=== PATIENT | female | born 1965 | race Caucasian/White ===

== ENCOUNTER 2017-10-17 07:37 | Emergency (ER) | payer MEDICAID ==
[~2017-10-17] VITALS: Ht 149.9 cm; Wt 79.0 kg
[~2017-10-17 07:37] MED LIST: ACYC-202 PO; CEPH-357 PO; NO HOME MEDS; [UNRECOGNIZED DRUG - CODE] PO
[2017-10-17] MEDS ORDERED: benzonatate 100mg capsule PO ONE (08:30)
[2017-10-17] MEDS ORDERED: proparacaine 0.5% ophthalmic drops 15ml RIGHTEYE ONE (08:30)
[2017-10-17] MEDS ORDERED: ipratropium/albuterol 3ml nebule NEB ONE (08:30)
[2017-10-17] MEDS ORDERED: gentamicin 0.3% ophthalmic drops 5ML RIGHTEYE ONE (09:20)
[2017-10-17] MEDS ORDERED: BENZ-16 PO (09:22)
[2017-10-17] MEDS ORDERED: ALBU18HF2 INH (09:22)
[2017-10-17 10:17] VITALS: BP 160/94
== END 2017-10-17 10:19 | disposition home or self-care (01) ==
LOC: ER 07:38
DX: S05.01XA Injury of conjunctiva and corneal abrasion without foreign body, right eye, initial encounter (principal); J98.01 Acute bronchospasm; J06.9 Acute upper respiratory infection, unspecified; J45.909 Unspecified asthma, uncomplicated; F12.10 Cannabis abuse, uncomplicated; F17.200 Nicotine dependence, unspecified, uncomplicated; Z90.49 Acquired absence of other specified parts of digestive tract; Z90.710 Acquired absence of both cervix and uterus; Z79.899 Other long term (current) drug therapy; X58.XXXA Exposure to other specified factors, initial encounter; Y93.89 Activity, other specified; Y92.89 Other specified places as the place of occurrence of the external cause; Y99.9 Unspecified external cause status
CPT/HCPCS: 71046; 94640; 94760; 99284

== ENCOUNTER 2019-06-07 13:08 | Inpatient (IN) | payer MEDICAID ==
[~2019-06-07] VITALS: Ht 147.3 cm; Wt 77.3 kg
[~2019-06-07 13:08] MED LIST changes: +ALBU18HF2 INH
--- NOTE | 2019-06-07 13:56 | NUR ---
GRACIA FROM LAB ATTEMPTED TO DRAW LABS X2 ON PT.
--- NOTE | 2019-06-07 16:15 | NUR ---
PICC NURSE AWARE OF NEED FOR MIDLINE.
--- NOTE | 2019-06-07 16:50 | NUR ---
PICC NURSE AT BEDSIDE.
[2019-06-07 18:09] LABS: PARTIAL THROMBOPLASTIN TIME 28 SECONDS (22-32)
[2019-06-07 18:11] LABS: BASOPHILS # (AUTO) 0.1 X10'3 (0-0.2); BASOPHILS % (AUTO) 0.4 % (0-1); EOSINOPHILS % (AUTO) 0.1 % (0-6); HEMATOCRIT 46.8 % (35.0-45.0); HEMOGLOBIN 15.6 g/dl (12.0-16.0); LYMPHOCYTES # (AUTO) 1.5 X10'3 (1.1-4.8); LYMPHOCYTES % (AUTO) 8.6 % (21-51); MEAN CORPUSCULAR HEMOGLOBIN 29.1 PG (27.0-31.0); MEAN CORPUSCULAR HGB CONC 33.4 g/dL (33.0-36.5); MEAN CORPUSCULAR VOLUME 87.2 FL (78-98); MEAN PLATELET VOLUME 7.4 FL (7.4-10.4); MONOCYTES # (AUTO) 1.8 X10'3 (0-0.9); MONOCYTES % (AUTO) 9.8 % (2-12); NEUTROPHILS # (AUTO) 14.6 X10'3 (1.8-7.7); NEUTROPHILS % (AUTO) 81.1 % (42-75); PLATELET COUNT 196 X10'3 (140-440); RED BLOOD COUNT 5.37 X10'6 (4.20-5.60); RED CELL DISTRIBUTION WIDTH 13.7 % (11.5-14.5)
[2019-06-07 18:12] LABS: ALANINE AMINOTRANSFERASE 56 U/L (12-78); ALBUMIN 2.8 G/DL (3.4-5.0); ALBUMIN/GLOBULIN RATIO 0.5 (1.1-1.5); ALKALINE PHOSPHATASE 109 IU/L (46-116); ANION GAP 10 (8-16); ASPARTATE AMINO TRANSFERASE 34 U/L (10-37); BILIRUBIN,TOTAL 0.7 MG/DL (0.1-1.0); BLOOD UREA NITROGEN 13 MG/DL (7-18); CALCIUM 8.7 MG/DL (8.5-10.1); CHLORIDE 96 MMOL/L (99-107); CREATININE 0.81 MG/DL (0.40-0.90); ETHANOL < 0.010 GM/DL (0.0-0.010); GLUCOSE 101 MG/DL (70-104); POTASSIUM 3.8 MMOL/L (3.5-5.1); SODIUM 131 MMOL/L (135-145); TOTAL CARBON DIOXIDE 25.2 MMOL/L (24-32); TOTAL PROTEIN 8.5 G/DL (6.4-8.2); eGFR 73 ML/MIN
[2019-06-07] MEDS ORDERED: piperacillin/tazo 3.375gm/50ml 50 ML IV ONE (18:15)
[2019-06-07] MEDS ORDERED: vancomycin/NS 1 GM ADD-VANTAGE 250 ML IV ONE (18:15)
[2019-06-07] MEDS ORDERED: normal saline 1000ML IV soln IV ONE (18:25)
[2019-06-07] MEDS ORDERED: morphine 4 MG/ML inj SYRINge IV ONE (18:40)
[2019-06-07] MEDS: morphine 4 MG/ML inj SYRINge IV PRN ×2 (19:17→21:08)
--- NOTE | 2019-06-07 19:47 | NUR ---
BLOOD CULTURES AND LACTATE DRAWN FROM RIGHT UPPER ARM PICCMIDLINE
--- NOTE | 2019-06-07 19:49 | NUR ---
PT RESTING COMFORTABLY - IV ABX DONE INFUSING - 2ND LITER OF BOLUS STARTED.
--- NOTE | 2019-06-07 20:11 | NUR ---
patint up out of bed to bed side comode. patient sister to see her . "gave her bites of burger."
[2019-06-07] MEDS: normal saline 1000ml 1,000 ML IV SCH (20:13)
[2019-06-07] MEDS ORDERED: magnesium Cl slow-release 64mg tablet PO PRN (20:15)
[2019-06-07] MEDS ORDERED: ondansetron/PF 4mg/2ml inj IV PRN (20:15)
[2019-06-07] MEDS ORDERED: potassium CL 10mEq/100ml bag 100 ML IV PRN ×2 (20:15)
[2019-06-07] MEDS ORDERED: magnesium hydroxide 30ml (MOM) UD suspension PO PRN (20:15)
[2019-06-07] MEDS ORDERED: morphine 2 MG/ML inj. syringe IV PRN ×2 (20:15)
[2019-06-07] MEDS ORDERED: mag hydrox/Alum hydrox/simeth 30ml oral suspension PO PRN (20:15)
[2019-06-07] MEDS ORDERED: potassium Cl 20 mEq SR tablet PO PRN (20:15)
[2019-06-07] MEDS ORDERED: HYDROcodone/acetaminophen 5mg/325mg tablet PO PRN (20:15)
[2019-06-07] MEDS ORDERED: magnesium 4gm in 100ml NS 100 ML IV PRN (20:15)
[2019-06-07] MEDS ORDERED: magnesium 2GM in 50ml NS 50 ML IV PRN (20:15)
[2019-06-07] MEDS ORDERED: acetaminophen 325mg tablet PO PRN (20:15)
[2019-06-07 20:47] LABS: URINE AMPHETAMINE SCREEN POSITIVE (Neg); URINE BARBITUATE SCREEN NEGATIVE (Neg); URINE BENZODIAZEPINES SCREEN NEGATIVE (Neg); URINE CANNABINOID SCREEN POSITIVE (Neg); URINE COCAINE SCREEN NEGATIVE (Neg); URINE METHADONE SCREEN NEGATIVE (Neg); URINE OPIATE SCREEN POSITIVE (Neg); URINE PHENCYCLIDINE SCREEN NEGATIVE (Neg)
[2019-06-07 20:51] LABS: CLARITY,URINE CLEAR (Clear); COLOR,URINE YELLOW (Yellow); GLUCOSE, URINE NEGATIVE (Neg); KETONES,URINE 15 mg/dl (Neg); LEUKOCYTE ESTERASE ,URINE TRACE (Neg); NITRITES, URINE NEGATIVE (Neg); OCCULT BLOOD,URINE TRACE-INTACT (Neg); PH,URINE 5.5 (4.8-8.0); PROTEIN,URINE NEGATIVE (Neg)
[2019-06-07 20:53] LABS: UA COLLECTION TYPE CLN CATCH MIDSTREAM
[2019-06-07 20:57] LABS: BACTERIA,URINE 1+ /HPF (Neg); RBC,URINE NONE SEEN /HPF (0-2); SQUAMOUS EPITHELIAL CELL,UR MODERATE /LPF (FEW)
[2019-06-07 20:58] LABS: MUCUS STRANDS FEW /LPF (Neg)
--- NOTE | 2019-06-07 21:06 | NUR ---
report called form DAMON Leyva. awaiting pt arrival to unit
[2019-06-07 21:22] VITALS: BP 187/97
--- NOTE | 2019-06-07 21:22 | NUR ---
pt arrived to unit, transferred self from [facility] to bed. vitals taken, 2 rn skin check done, bll, 2x rails up, call light in reach. will continue to monitor
[2019-06-07] MEDS ORDERED: LORazepam 1 MG tablet PO PRN (23:15)
[2019-06-08] VITALS: BP 160/73
[2019-06-08] MEDS ORDERED: piperacillin/tazo 3.375gm/50ml 50 ML IV SCH
[2019-06-08] MEDS: vancomycin/NS 1 GM ADD-VANTAGE 250 ML IV SCH ×2 (00:32→12:16)
[2019-06-08] MEDS: piperacillin/tazo 3.375gm/50ml 50 ML IV SCH ×2 (02:08→08:00)
[2019-06-08 04:55] LABS: BASOPHILS % (AUTO) 0.1 % (0-1); EOSINOPHILS % (AUTO) 0.1 % (0-6); HEMATOCRIT 40.5 % (35.0-45.0); HEMOGLOBIN 13.7 g/dl (12.0-16.0); LYMPHOCYTES # (AUTO) 1.6 X10'3 (1.1-4.8); LYMPHOCYTES % (AUTO) 10.9 % (21-51); MEAN CORPUSCULAR HEMOGLOBIN 29.3 PG (27.0-31.0); MEAN CORPUSCULAR HGB CONC 33.8 g/dL (33.0-36.5); MEAN CORPUSCULAR VOLUME 86.6 FL (78-98); MEAN PLATELET VOLUME 7.9 FL (7.4-10.4); MONOCYTES # (AUTO) 1.7 X10'3 (0-0.9); MONOCYTES % (AUTO) 11.4 % (2-12); NEUTROPHILS # (AUTO) 11.3 X10'3 (1.8-7.7); NEUTROPHILS % (AUTO) 77.5 % (42-75); PLATELET COUNT 174 X10'3 (140-440); RED BLOOD COUNT 4.68 X10'6 (4.20-5.60); RED CELL DISTRIBUTION WIDTH 13.4 % (11.5-14.5); WHITE BLOOD COUNT 14.6 X10'3 (4.5-11.0)
[2019-06-08 05:05] LABS: ALBUMIN 2.2 G/DL (3.4-5.0); ANION GAP 7 (8-16); BLOOD UREA NITROGEN 7 MG/DL (7-18); BUN/CREATININE RATIO 8.2 (6.6-38.0); CALCIUM 7.9 MG/DL (8.5-10.1); CHLORIDE 103 MMOL/L (99-107); CREATININE 0.85 MG/DL (0.40-0.90); GLUCOSE 114 MG/DL (70-104); MAGNESIUM 1.7 MG/DL (1.5-2.4); SODIUM 136 MMOL/L (135-145); eGFR 69 ML/MIN
--- NOTE | 2019-06-08 06:45 | NUR ---
Patient in room [facility] 345. I have received report from DAMON Ford and had the opportunity to ask questions and assume patient care.
--- NOTE | 2019-06-08 06:47 | NUR ---
Problems reprioritized. Patient report given, questions answered & plan of care reviewed with DAMON Wagner.
[2019-06-08 08:00] VITALS: BP 143/66
[2019-06-08] MEDS: K and/or MAG REPLACEMENT MC SCH (08:00)
[2019-06-08] MEDS: morphine 4 MG/ML inj SYRINge IV PRN (08:17)
[2019-06-08] MEDS: lactobacillus rhamnosus 10,000 MMU CELLS/CAPSULE PO SCH (08:21)
[2019-06-08] MEDS: potassium Cl 20 mEq SR tablet PO PRN ×3 (08:24→17:26)
[2019-06-08] MEDS: enoxaparin 40mg/0.4ml syringe SQ SCH (08:25)
[2019-06-08] MEDS: HYDROcodone/acetaminophen 10/325mg tab PO PRN ×2 (10:27→17:27)
[2019-06-08 12:00] VITALS: BP 172/81
[2019-06-08] MEDS: normal saline 1000ml 1,000 ML IV SCH ×2 (12:16→16:13)
[2019-06-08 12:30] VITALS: BP 160/84
--- NOTE | 2019-06-08 18:32 | NUR ---
Problems reprioritized. Patient report given, questions answered & plan of care reviewed with DAMON Wade.
--- NOTE | 2019-06-08 18:38 | NUR ---
Patient in room [facility] 345. I have received report from Kristy JOSE and had the opportunity to ask questions and assume patient care.
[2019-06-08 19:00] VITALS: BP 151/85
[2019-06-09] VITALS: BP 151/68
[2019-06-09] MEDS: vancomycin/NS 1 GM ADD-VANTAGE 250 ML IV SCH (00:51)
[2019-06-09] MEDS: HYDROcodone/acetaminophen 10/325mg tab PO PRN ×2 (00:57→07:51)
[2019-06-09] MEDS: normal saline 1000ml 1,000 ML IV SCH (03:13)
--- NOTE | 2019-06-09 06:35 | NUR ---
Problems reprioritized. Patient report given, questions answered & plan of care reviewed with Izzy JOSE.
[2019-06-09 07:14] VITALS: BP 129/64
[2019-06-09] MEDS: lactobacillus rhamnosus 10,000 MMU CELLS/CAPSULE PO SCH (07:51)
[2019-06-09] MEDS: enoxaparin 40mg/0.4ml syringe SQ SCH (07:52)
[2019-06-09] MEDS: K and/or MAG REPLACEMENT MC SCH (08:00)
--- NOTE | 2019-06-09 09:05 | NUR ---
PT REFUSING LABS, WANTS TO POSSIBLY GO HOME TODAY. DR LANDRY AWARE, CANCELLED LABS AND WILL WAIT FOR HER DECISION.
[2019-06-09] MEDS ORDERED: HYDR-4383 PO (09:26)
[2019-06-09] MEDS ORDERED: CEPH250T PO (09:26)
[2019-06-09] MEDS ORDERED: VANCOMYCIN LEVEL IV ONE (11:30)
--- NOTE | 2019-06-09 12:30 | NUR ---
PT DISCHARGED HOME WITH FAMILY, WILL COME BACK TO ER IF HOME ABX DOES NOT WORK. EXTENDED IV TAKEN OUT, NO TELE. ALL BELONGINGS TAKEN FROM ROOM.
== END 2019-06-09 12:40 | disposition home or self-care (01) | DRG 720 ==
LOC: ER 13:09 → SUR 3N 21:30 → CMPBEDREQ 21:37
PROVIDERS: ADMIT Hospitalist; ATTEND Internal Medicine
PROC: 05HY33Z Insertion of Infusion Device into Upper Vein, Percutaneous Approach (ICD-10-PCS; principal; 2019-06-07)
DX: A41.9 Sepsis, unspecified organism (principal); L03.115 Cellulitis of right lower limb; E87.6 Hypokalemia; B19.20 Unspecified viral hepatitis C without hepatic coma; F12.90 Cannabis use, unspecified, uncomplicated; J45.909 Unspecified asthma, uncomplicated; F17.200 Nicotine dependence, unspecified, uncomplicated; Z90.710 Acquired absence of both cervix and uterus; Z90.49 Acquired absence of other specified parts of digestive tract; Z79.899 Other long term (current) drug therapy
CPT/HCPCS: 36415; 71045; 76937; 80048; 80053; 80305; 80320; 81001; 83605; 83735; 84145; 85025; 85610; 85730; 87040; 87081; 87088; 93971; 96365; 96375; 99285; G0378; J1650; J2270; J2543; J3370; J7030

== ENCOUNTER 2022-03-03 03:13 | Inpatient (IN) | payer MEDICAID ==
[~2022-03-03] VITALS: Ht 149.9 cm; Wt 90.9 kg
[~2022-03-03 03:13] MED LIST changes: -ACYC-202 PO; -ALBU18HF2 INH; -CEPH-357 PO; +HYDR-4383 PO; -NO HOME MEDS; -[UNRECOGNIZED DRUG - CODE] PO
[2022-03-03] MEDS ORDERED: normal saline 1000ML IV soln IVB ONE (03:55)
[2022-03-03] MEDS ORDERED: vancomycin/NS 1 GM ADD-VANTAGE 250 ML IV ONE (04:05)
[2022-03-03] MEDS ORDERED: cefTRIAXone 1g/NS 100ml IVPB 100 ML IV ONE (04:05)
[2022-03-03 04:48] LABS: BASOPHILS % (AUTO) 0.2 % (0-1); EOSINOPHILS % (AUTO) 0.3 % (0-6); HEMATOCRIT 34.4 % (35.0-45.0); HEMOGLOBIN 11.2 g/dl (12.0-16.0); LYMPHOCYTES # (AUTO) 0.8 X10'3 (1.1-4.8); LYMPHOCYTES % (AUTO) 7.1 % (21-51); MEAN CORPUSCULAR HEMOGLOBIN 28.6 PG (27.0-31.0); MEAN CORPUSCULAR HGB CONC 32.6 g/dL (33.0-36.5); MEAN CORPUSCULAR VOLUME 87.5 FL (78-98); MEAN PLATELET VOLUME 7.3 FL (7.4-10.4); MONOCYTES # (AUTO) 1.1 X10'3 (0-0.9); MONOCYTES % (AUTO) 9.7 % (2-12); NEUTROPHILS # (AUTO) 9.6 X10'3 (1.8-7.7); NEUTROPHILS % (AUTO) 82.7 % (42-75); PLATELET COUNT 211 X10'3 (140-440); RED BLOOD COUNT 3.93 X10'6 (4.20-5.60); RED CELL DISTRIBUTION WIDTH 14.5 % (11.5-14.5); WHITE BLOOD COUNT 11.6 X10'3 (4.5-11.0)
[2022-03-03 04:58] LABS: ALANINE AMINOTRANSFERASE 17 U/L (12-78); ALBUMIN 3.1 G/DL (3.4-5.0); ALBUMIN/GLOBULIN RATIO 0.6 (1.1-1.5); ALKALINE PHOSPHATASE 151 IU/L (46-116); ANION GAP 8 (8-16); ASPARTATE AMINO TRANSFERASE 22 U/L (10-37); BILIRUBIN,TOTAL 0.4 MG/DL (0.1-1.0); BLOOD UREA NITROGEN 15 MG/DL (7-18); BUN/CREATININE RATIO 19.5 (6.6-38.0); CALCIUM 8.4 MG/DL (8.5-10.1); CHLORIDE 100 MMOL/L (99-107); CREATININE 0.77 MG/DL (0.40-0.90); GLUCOSE 157 MG/DL (70-104); POTASSIUM 3.6 MMOL/L (3.5-5.1); SODIUM 133 MMOL/L (135-145); TOTAL CARBON DIOXIDE 24.7 MMOL/L (24-32); TOTAL PROTEIN 7.9 G/DL (6.4-8.2); eGFR 77 ML/MIN
--- NOTE | 2022-03-03 05:36 | NUR ---
PT WAS EMOTIONAL AND CRYING R/T HEALTH SITUATION. CONSOLED PT AND LET HER KNOW THAT WE WOULD TAKE THE BEST CARE OF HER POSSIBLE. PT IS NOW RESTING QUIETLY IN BED.
[2022-03-03] MEDS ORDERED: bisacodyl 10mg suppository rectal RC PRN (06:10)
[2022-03-03] MEDS ORDERED: diphenhydrAMINE 25mg capsule PO PRN (06:10)
[2022-03-03] MEDS ORDERED: HYDROcodone/acetaminophen 5mg/325mg tablet PO PRN (06:10)
[2022-03-03] MEDS ORDERED: ondansetron/PF 4mg/2ml inj IV PRN (06:10)
[2022-03-03] MEDS ORDERED: morphine 2 MG/ML inj. syringe IV PRN ×2 (06:10)
[2022-03-03] MEDS ORDERED: diphenhydrAMINE 50 mg/ml inj IV PRN (06:10)
[2022-03-03] MEDS ORDERED: ondansetron 4mg rapidly disintigrating tab PO PRN (06:10)
[2022-03-03] MEDS ORDERED: HYDROmorphone inj. 0.5 MG/0.5 ML DISP.SYRIN IV PRN (06:10)
[2022-03-03] MEDS ORDERED: magnesium hydroxide 30ml (MOM) UD suspension PO PRN (06:10)
[2022-03-03] MEDS ORDERED: mag hydrox/Alum hydrox/simeth 30ml oral suspension PO PRN (06:10)
[2022-03-03 06:50] LABS: MAGNESIUM 1.6 MG/DL (1.5-2.4); PHOSPHORUS 2.5 MG/DL (2.3-4.5)
[2022-03-03] MEDS: pantoprazole 40mg Tablet.DR PO SCH (07:33)
[2022-03-03] MEDS: normal saline 1000ml 1,000 ML IV SCH ×2 (07:33→15:34)
[2022-03-03] MEDS: piperacillin/tazo 4.5gm/100ml 100 ML IV SCH ×2 (07:34→16:00)
[2022-03-03] MEDS: hydrALAZINE 20mg/ml inj. IV PRN ×2 (07:35→14:39)
[2022-03-03] MEDS: acetaminophen 325mg tablet PO PRN ×2 (07:35→17:14)
[2022-03-03] MEDS: docusate sod 100mg capsule PO SCH ×2 (07:35→20:00)
[2022-03-03] MEDS ORDERED: vancomycin/NS 1 GM ADD-VANTAGE 250 ML IV SCH (08:00)
--- NOTE | 2022-03-03 11:38 | NUR ---
Pt found to have soiled bed and gown with urine. complete bed change provided, katey care and pt assisted to bedside commode for more urine output and clean up. pt then placed back in bed and purewick placed. pt denies any further needs at this time
[2022-03-03] MEDS ORDERED: IBUP-1984 PO (12:55)
[2022-03-03] MEDS ORDERED: GABA-530 PO (12:55)
[2022-03-03] MEDS: gabapentin 100mg capsule PO SCH (15:34)
[2022-03-03] MEDS: vancomycin/NS 1 GM ADD-VANTAGE 250 ML IV SCH (15:34)
--- NOTE | 2022-03-03 20:44 | NUR ---
PT WAS SHOUTING OUT AND BEING MANIPULATIVE. PT WAS EDUCATED AND CARED FOR. AWESOME EMT STAFF, DESPITE BEING CURSED AT, HELPED TO COMPLETE A BED AND GOWN CHANGE FOR PT AND GETTING HER RESETTLED INTO BED AND IS NOW SLEEPING COMFORTABLY.
[2022-03-03] MEDS ORDERED: temazepam 15mg capsule PO PRN (21:00)
--- NOTE | 2022-03-03 21:40 | NUR ---
PTS IV HAD BECOME DISLODGED ITHIS OFFICE ADMIN WAS ASKED TO ATTEMPT IV START. IV ATTEMPT X3 WITHOUT SUCCESS EACH TIME THE VEIN DID NOT HOLD AND BECAME ECCHOMOTIC, PRIMARY RN NOTIFIED THAT I WAS UNABLE TO LOCATE ANY FURTHER OPTIONS FOR ATTEMPT.
[2022-03-04] VITALS (11 sets, daily range): BP systolic 128–170; BP diastolic 52–98
[2022-03-04] MEDS: piperacillin/tazo 4.5gm/100ml 100 ML IV SCH ×3 (02:00→22:07)
[2022-03-04] MEDS: normal saline 1000ml 1,000 ML IV SCH ×3 (02:17→22:10)
--- NOTE | 2022-03-04 02:31 | NUR ---
CHECKED ON PT AND GOT HER A WARM BLANKET AND REPOSITIONED. PT WAS MEDICATED AND HAS NO NEEDS AT THIS TIME.
[2022-03-04 02:58] LABS: BASOPHILS % (AUTO) 0.3 % (0-1); EOSINOPHILS # (AUTO) 0.1 X10'3 (0-0.9); EOSINOPHILS % (AUTO) 0.4 % (0-6); HEMATOCRIT 34.3 % (35.0-45.0); HEMOGLOBIN 11.6 g/dl (12.0-16.0); LYMPHOCYTES # (AUTO) 1.3 X10'3 (1.1-4.8); LYMPHOCYTES % (AUTO) 9.2 % (21-51); MEAN CORPUSCULAR HEMOGLOBIN 28.7 PG (27.0-31.0); MEAN CORPUSCULAR HGB CONC 33.6 g/dL (33.0-36.5); MEAN CORPUSCULAR VOLUME 85.3 FL (78-98); MEAN PLATELET VOLUME 7.5 FL (7.4-10.4); MONOCYTES # (AUTO) 1.8 X10'3 (0-0.9); MONOCYTES % (AUTO) 12.9 % (2-12); NEUTROPHILS # (AUTO) 10.6 X10'3 (1.8-7.7); NEUTROPHILS % (AUTO) 77.2 % (42-75); PLATELET COUNT 222 X10'3 (140-440); RED BLOOD COUNT 4.02 X10'6 (4.20-5.60); RED CELL DISTRIBUTION WIDTH 13.9 % (11.5-14.5); WHITE BLOOD COUNT 13.8 X10'3 (4.5-11.0)
[2022-03-04 03:07] LABS: ALANINE AMINOTRANSFERASE 15 U/L (12-78); ALBUMIN 2.7 G/DL (3.4-5.0); ALBUMIN/GLOBULIN RATIO 0.6 (1.1-1.5); ALKALINE PHOSPHATASE 139 IU/L (46-116); ANION GAP 10 (8-16); ASPARTATE AMINO TRANSFERASE 31 U/L (10-37); BILIRUBIN,TOTAL 0.6 MG/DL (0.1-1.0); BLOOD UREA NITROGEN 7 MG/DL (7-18); BUN/CREATININE RATIO 10.3 (6.6-38.0); CALCIUM 8.7 MG/DL (8.5-10.1); CHLORIDE 101 MMOL/L (99-107); CREATININE 0.68 MG/DL (0.40-0.90); GLUCOSE 128 MG/DL (70-104); SODIUM 135 MMOL/L (135-145); TOTAL CARBON DIOXIDE 24.5 MMOL/L (24-32); TOTAL PROTEIN 7.5 G/DL (6.4-8.2); eGFR 89 ML/MIN
[2022-03-04 03:20] LABS: POTASSIUM 2.8 MMOL/L (3.5-5.1)
[2022-03-04] MEDS: vancomycin/NS 1 GM ADD-VANTAGE 250 ML IV SCH ×2 (04:57→16:20)
[2022-03-04] MEDS: potassium Cl 20 mEq SR tablet PO SCH ×3 (04:57→16:20)
--- NOTE | 2022-03-04 05:46 | NUR ---
PT IV INFILTRATED WHILE VANCOMYCIN WAS RUNNING. IV DISCONTINUED AND PHARMACIST NOTIFIED. PHARMACIST RECOMMENDED COLD COMPRESS AND FOLLOWED WITH WARM COMPRESSES.
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
--- NOTE | 2022-03-04 06:43 | NUR ---
[facility] not [facility] iv acess tried once not successfull ,notified dr tovar that pt is tachycardiac and diaphortic and we have paged the picc nurse for iv acess ,is it okay if we do ativian 1 mg im onces while waiting for picc line nurse .as per md put the orders for ativian 1 mg iv q6hr as scheduled and ativian 1 mg iv q3 hr prn for withdrawls.
--- NOTE | 2022-03-04 06:43 | NUR ---
DR SAUCEDO ALSO GIVEN TELEPHONE ORDER FOR ISABEL CATHETER FOR CRITICALL ILL PT MONITORING .FOR INATKE AND OUTPUT.
[2022-03-04] MEDS ORDERED: LORazepam 2 mg/ml vial IV PRN (06:50)
[2022-03-04] MEDS ORDERED: LORazepam 2 mg/ml vial IM ONE (06:50)
--- NOTE | 2022-03-04 07:12 | NUR ---
CHAO JOSE ALREADY PAGED THE PICC LINE NURSE,STILL WAITING FOR PICC LINE NURSE FOR IV ACCESS.
--- NOTE | 2022-03-04 07:39 | NUR ---
paged picc line nurse at this time .
--- NOTE | 2022-03-04 07:41 | NUR ---
PAGED DR MIJARES FOR HIGH BP ,TACHYCARDIA,DIAPHORTIC,PENDING IV ACESS,ORDER FOR UA TOX SCREEN.
[2022-03-04] MEDS ORDERED: amLODIPine 5mg tablet PO ONE (07:50)
[2022-03-04] MEDS ORDERED: amLODIPine 5mg tablet PO PRN (07:50)
--- NOTE | 2022-03-04 07:53 | NUR ---
SPOKE TO DR MIJARES REGARDING PT HIGH BP ,TACHYCARDIA,PENDING IV ACCESS,ORDER FOR TOX UA. PER MD GIVE AMLODIPINE 5 MG PO ONCE AND THEN GIVE ANOTHER 5 MG PO IF SYST BP IS STILL ABOVE 160 .ORDER FOR MIDLINE .
[2022-03-04] MEDS: docusate sod 100mg capsule PO SCH ×2 (08:00→20:00)
--- NOTE | 2022-03-04 08:02 | NUR ---
PICC LINE NURSE ON HER WAY TO ER FOR MIDLINE PLACEMENT.
--- NOTE | 2022-03-04 08:02 | NUR ---
WOUND CARE NURSE WILL BE HERE TO CHECK THE PT.
[2022-03-04] MEDS: pantoprazole 40mg Tablet.DR PO SCH (08:10)
[2022-03-04] MEDS: gabapentin 100mg capsule PO SCH ×2 (08:10)
--- NOTE | 2022-03-04 08:35 | NUR ---
PICC LINE NURSE AT BEDSIDE.
[2022-03-04 09:22] LABS: URINE AMPHETAMINE SCREEN NEGATIVE (Neg); URINE BARBITUATE SCREEN NEGATIVE (Neg); URINE BENZODIAZEPINES SCREEN NEGATIVE (Neg); URINE CANNABINOID SCREEN NEGATIVE (Neg); URINE COCAINE SCREEN NEGATIVE (Neg); URINE METHADONE SCREEN NEGATIVE (Neg); URINE OPIATE SCREEN NEGATIVE (Neg); URINE PHENCYCLIDINE SCREEN NEGATIVE (Neg)
[2022-03-04] MEDS: LORazepam 2 mg/ml vial IV SCH ×3 (09:32→20:00)
[2022-03-04] MEDS: hydrALAZINE 20mg/ml inj. IV PRN (09:54)
--- NOTE | 2022-03-04 10:03 | NUR ---
Patient cooperative, however, continuous movement. 6 attemps 2 Right FA but a suspected phlebitis noted to inner FA and perimeter outlined with black marker to monitor, the site has redness with and noted hardening of vessel. Right Upper are also has edema secondary recent infiltration. Left upper arm attempted x2 with success with ultrasound guidance to left brachial vein. Cast on left FA. Cast broken and dirty. Patient states was to see the orthopedic doctor yesterday. Secondary Left upper IV and cast to lower FA. pulses checked and + and fingers pinkish and easily moved. Pt's RN notified of suspected phlebitis and left-sided extended with FA cast and encouraged to monitor closely and report to receiving RN when transfered to floor. Addendum: 03/04/22 at 1015 by Blanka Diamond RN Amended: Links added.
--- NOTE | 2022-03-04 10:10 | NUR ---
PAGED DR MIJARES AT THIS TIME .
--- NOTE | 2022-03-04 10:12 | NUR ---
PT STILL TACHYCARDIAC ,TACHYPNIC,HYPERTENSIVE EVEN AFTER THE ATIVIAN AND HYDRALAZINE IV MEDS ADMINSTERATION.PAGED DR MIJARES AT THIS TIME.
--- NOTE | 2022-03-04 10:24 | NUR ---
DISCUSSED THE PT CONDITION WITH DR MIJARES VERBAL ORDERS TO GIVE DILAUDID 1 MG IV ONCE FOR NONVERBAL PAIN.
[2022-03-04] MEDS ORDERED: HYDROmorphone 1 mg/ml syringe IV ONE (10:25)
--- NOTE | 2022-03-04 10:51 | NUR ---
CALLED PHARMACY FOR BRINGING THE PT LOUISE GARCIA .
[2022-03-04 11:08] LABS: ALBUMIN 3.1 G/DL (3.4-5.0); ANION GAP 10 (8-16); BLOOD UREA NITROGEN 7 MG/DL (7-18); BUN/CREATININE RATIO 9.6 (6.6-38.0); CALCIUM 9.3 MG/DL (8.5-10.1); CHLORIDE 99 MMOL/L (99-107); CREATININE 0.73 MG/DL (0.40-0.90); GLUCOSE 182 MG/DL (70-104); SODIUM 133 MMOL/L (135-145); TOTAL CARBON DIOXIDE 23.9 MMOL/L (24-32); eGFR 82 ML/MIN
[2022-03-04 11:16] LABS: POTASSIUM 3.4 MMOL/L (3.5-5.1)
--- NOTE | 2022-03-04 12:11 | NUR ---
RECEIVED PT FROM ER. PT RESTLESS AND DROWSY BY A/O. PT NOTED TO BE DIAPHORETIC, TACHYCARDIC, WITH RR 24. PER REPORT FROM ER MD NOTIFIED AND PT HAS BEEN MEDICATED FOR THE ABOVE. PT NOTED TO HAVE A DRESSING TO LEFT KNEE, CDI. BROKEN AND DIRTY CAST TO LEFT WRIST CSMS INTACT WITH CAP REFILL < 3 SEC. PT DENIES PAIN. PT PLACED ON DINKEY DRIVER.
[2022-03-04] MEDS ORDERED: VANCOMYCIN LEVEL IV ONE (15:30)
--- NOTE | 2022-03-04 15:57 | NUR ---
AT 1530 PT C/O 8/10 PAIN TO SIDE. PT NOTED TO BE RESTLESS AND AGITATED. PT MEDICATED WITH MORPHINE 2MG AND ATIVAN 1 MG. PT RESTING QUIETLY, RR EQUAL AND UNLABORED, DAUGHTER AT BS, BP AND HR DECREASED.
--- NOTE | 2022-03-04 17:50 | NUR ---
PT TRANSFERRED TO PACU ROOM 8 TO CONTINUE TO WAIT FOR ROOM ON THE FLOOR. . VSS REPORT GIVEN TO KELLY JOSE.
--- NOTE | 2022-03-04 19:30 | NUR ---
Report called to receiving nurse JOE OROZCO Transferred via [facility] BED TO ROOM 4012B. BED IN LOW LOCKED POSITION WITH CALL LIGHT IN REACH. PT Belongings BAG SENT TO ROOM 4012B WITH PT. Special Issues communicated to receiving nurse. Addendum: 03/04/22 at 1934 by Aaliyah Mckeon RN RN Amended: Links added.
[2022-03-05] MEDS: LORazepam 2 mg/ml vial IV SCH ×4 (02:00→20:01)
[2022-03-05] MEDS: gabapentin 100mg capsule PO SCH ×3 (02:03→16:00)
[2022-03-05 04:18] LABS: BASOPHILS % (AUTO) 0.3 % (0-1); EOSINOPHILS # (AUTO) 0.1 X10'3 (0-0.9); EOSINOPHILS % (AUTO) 0.8 % (0-6); HEMATOCRIT 37.1 % (35.0-45.0); HEMOGLOBIN 12.6 g/dl (12.0-16.0); LYMPHOCYTES # (AUTO) 1.8 X10'3 (1.1-4.8); LYMPHOCYTES % (AUTO) 12.4 % (21-51); MEAN CORPUSCULAR HEMOGLOBIN 28.5 PG (27.0-31.0); MEAN PLATELET VOLUME 7.2 FL (7.4-10.4); MONOCYTES # (AUTO) 1.4 X10'3 (0-0.9); MONOCYTES % (AUTO) 9.6 % (2-12); NEUTROPHILS # (AUTO) 10.9 X10'3 (1.8-7.7); NEUTROPHILS % (AUTO) 76.9 % (42-75); PLATELET COUNT 294 X10'3 (140-440); RED BLOOD COUNT 4.42 X10'6 (4.20-5.60); WHITE BLOOD COUNT 14.2 X10'3 (4.5-11.0)
[2022-03-05 04:31] LABS: ALANINE AMINOTRANSFERASE 26 U/L (12-78); ALBUMIN 2.7 G/DL (3.4-5.0); ALBUMIN/GLOBULIN RATIO 0.5 (1.1-1.5); ALKALINE PHOSPHATASE 144 IU/L (46-116); ANION GAP 12 (8-16); ASPARTATE AMINO TRANSFERASE 29 U/L (10-37); BILIRUBIN,TOTAL 0.4 MG/DL (0.1-1.0); BLOOD UREA NITROGEN 6 MG/DL (7-18); BUN/CREATININE RATIO 7.9 (6.6-38.0); CALCIUM 9.2 MG/DL (8.5-10.1); CHLORIDE 103 MMOL/L (99-107); CREATININE 0.76 MG/DL (0.40-0.90); GLUCOSE 145 MG/DL (70-104); SODIUM 138 MMOL/L (135-145); eGFR 78 ML/MIN
[2022-03-05] MEDS ORDERED: magnesium 4gm in 100ml NS 100 ML IV PRN (04:45)
[2022-03-05] MEDS ORDERED: magnesium 2GM in 50ml NS 50 ML IV PRN (04:45)
[2022-03-05] MEDS ORDERED: magnesium Cl slow-release 64mg tablet PO PRN (04:45)
[2022-03-05] MEDS ORDERED: potassium CL 10mEq/100ml bag 100 ML IV PRN (04:45)
[2022-03-05] MEDS ORDERED: POTASSIUM BICARB 20meq eff tab 20 MEQ TABLET.EFF PO PRN (04:45)
[2022-03-05] MEDS: vancomycin/NS 1 GM ADD-VANTAGE 250 ML IV SCH ×2 (04:49→20:01)
[2022-03-05] MEDS: POTASSIUM BICARB 20meq eff tab 20 MEQ TABLET.EFF PO PRN (05:05)
[2022-03-05 06:00] VITALS: BP 192/94
--- NOTE | 2022-03-05 06:15 | NUR ---
Received report from Lesia JOSE
--- NOTE | 2022-03-05 06:45 | NUR ---
Patient in room ORTHO 4012. I have received report from AMANDA Davis and had the opportunity to ask questions and assume patient care.
[2022-03-05 06:58] LABS: MAGNESIUM 1.9 MG/DL (1.5-2.4); POTASSIUM 3.6 MMOL/L (3.5-5.1)
[2022-03-05] MEDS: normal saline 1000ml 1,000 ML IV SCH ×2 (07:59→17:52)
[2022-03-05] MEDS: hydrALAZINE 20mg/ml inj. IV PRN (08:00)
[2022-03-05] MEDS: docusate sod 100mg capsule PO SCH ×2 (08:00→20:00)
[2022-03-05] MEDS: pantoprazole 40mg Tablet.DR PO SCH (08:00)
[2022-03-05] MEDS: piperacillin/tazo 4.5gm/100ml 100 ML IV SCH ×2 (08:01→15:03)
[2022-03-05 10:00] VITALS: BP 153/77
--- NOTE | 2022-03-05 11:30 | NUR ---
FC DC'd per Dr Becker order. Pt tolerated well.
--- NOTE | 2022-03-05 13:39 | NUR ---
supplies for wound care brought to floor and given to Izzy JOSE. Addendum: 03/05/22 at 1341 by Anabela Saenz RN Amended: Links added.
[2022-03-05 14:00] VITALS: BP 129/75
[2022-03-05] MEDS ORDERED: VANCOMYCIN LEVEL IV ONE (15:30)
[2022-03-05] MEDS: HYDROcodone/acetaminophen 10/325mg tab PO PRN ×2 (17:55→22:10)
[2022-03-05 18:00] VITALS: BP 158/86
--- NOTE | 2022-03-05 18:22 | NUR ---
Problems reprioritized. Patient report given, questions answered & plan of care reviewed with AMANDA Davis.
[2022-03-05 22:00] VITALS: BP 163/78
[2022-03-06] MEDS: gabapentin 100mg capsule PO SCH ×4 (00:45→23:49)
[2022-03-06] MEDS: LORazepam 2 mg/ml vial IV SCH ×4 (02:00→20:54)
[2022-03-06] MEDS: HYDROcodone/acetaminophen 10/325mg tab PO PRN ×4 (02:39→21:05)
[2022-03-06 04:00] VITALS: BP 168/82
--- NOTE | 2022-03-06 04:17 | NUR ---
In agreement with physical assessment by Susan PATEL unless otherwise charted.
[2022-03-06] MEDS: vancomycin/NS 1 GM ADD-VANTAGE 250 ML IV SCH ×2 (04:30→16:23)
[2022-03-06] MEDS: normal saline 1000ml 1,000 ML IV SCH ×3 (05:41→17:25)
[2022-03-06 05:56] LABS: BASOPHILS # (AUTO) 0.1 X10'3 (0-0.2); BASOPHILS % (AUTO) 0.5 % (0-1); EOSINOPHILS # (AUTO) 0.2 X10'3 (0-0.9); EOSINOPHILS % (AUTO) 1.4 % (0-6); HEMATOCRIT 36.9 % (35.0-45.0); HEMOGLOBIN 12.2 g/dl (12.0-16.0); LYMPHOCYTES # (AUTO) 2.4 X10'3 (1.1-4.8); LYMPHOCYTES % (AUTO) 21.2 % (21-51); MEAN CORPUSCULAR HEMOGLOBIN 28.1 PG (27.0-31.0); MEAN CORPUSCULAR HGB CONC 33.2 g/dL (33.0-36.5); MEAN CORPUSCULAR VOLUME 84.8 FL (78-98); MONOCYTES # (AUTO) 1.3 X10'3 (0-0.9); MONOCYTES % (AUTO) 11.4 % (2-12); NEUTROPHILS # (AUTO) 7.3 X10'3 (1.8-7.7); NEUTROPHILS % (AUTO) 65.5 % (42-75); PLATELET COUNT 323 X10'3 (140-440); RED BLOOD COUNT 4.35 X10'6 (4.20-5.60); RED CELL DISTRIBUTION WIDTH 14.6 % (11.5-14.5); WHITE BLOOD COUNT 11.2 X10'3 (4.5-11.0)
[2022-03-06 06:29] LABS: ALANINE AMINOTRANSFERASE 39 U/L (12-78); ALBUMIN 2.5 G/DL (3.4-5.0); ALBUMIN/GLOBULIN RATIO 0.5 (1.1-1.5); ALKALINE PHOSPHATASE 130 IU/L (46-116); ANION GAP 9 (8-16); ASPARTATE AMINO TRANSFERASE 38 U/L (10-37); BILIRUBIN,TOTAL 0.2 MG/DL (0.1-1.0); BLOOD UREA NITROGEN 9 MG/DL (7-18); BUN/CREATININE RATIO 9.8 (6.6-38.0); CALCIUM 8.5 MG/DL (8.5-10.1); CHLORIDE 106 MMOL/L (99-107); CREATININE 0.92 MG/DL (0.40-0.90); GLUCOSE 135 MG/DL (70-104); SODIUM 141 MMOL/L (135-145); TOTAL CARBON DIOXIDE 26.1 MMOL/L (24-32); TOTAL PROTEIN 7.5 G/DL (6.4-8.2); eGFR 63 ML/MIN
--- NOTE | 2022-03-06 06:38 | NUR ---
Patient in room ORTHO 4012. I have received report from AMANDA Davis and had the opportunity to ask questions and assume patient care.
[2022-03-06 06:45] LABS: POTASSIUM 2.9 MMOL/L (3.5-5.1)
[2022-03-06] MEDS: docusate sod 100mg capsule PO SCH ×2 (08:00→19:36)
[2022-03-06] MEDS: pantoprazole 40mg Tablet.DR PO SCH (08:01)
[2022-03-06] MEDS: POTASSIUM BICARB 20meq eff tab 20 MEQ TABLET.EFF PO PRN ×3 (09:52→20:47)
[2022-03-06 10:00] VITALS: BP 172/69
[2022-03-06 14:00] VITALS: BP 185/152
--- NOTE | 2022-03-06 18:14 | NUR ---
Problems reprioritized. Patient report given, questions answered & plan of care reviewed with DAMON Matias and eddie Brandt RN.
--- NOTE | 2022-03-06 18:21 | NUR ---
Patient in room ORTHO 4012. I have received report from vinay flores and had the opportunity to ask questions and assume patient care.
[2022-03-06 19:42] VITALS: BP 174/87
[2022-03-06 22:00] VITALS: BP 179/86
[2022-03-07] MEDS: LORazepam 2 mg/ml vial IV SCH (02:48)
[2022-03-07] MEDS: HYDROcodone/acetaminophen 10/325mg tab PO PRN ×3 (02:56→10:12)
[2022-03-07] MEDS: vancomycin/NS 1 GM ADD-VANTAGE 250 ML IV SCH (04:15)
[2022-03-07] MEDS: normal saline 1000ml 1,000 ML IV SCH (04:18)
--- NOTE | 2022-03-07 06:29 | NUR ---
Problems reprioritized. Patient report given, questions answered & plan of care reviewed with jeanine rn.
--- NOTE | 2022-03-07 06:30 | NUR ---
Pt refused VS
--- NOTE | 2022-03-07 06:30 | NUR ---
Patient in room ORTHO 4012. I have received report from Karly RN & Polly RN and had the opportunity to ask questions and assume patient care.
[2022-03-07 07:19] LABS: BASOPHILS # (AUTO) 0.1 X10'3 (0-0.2); BASOPHILS % (AUTO) 0.6 % (0-1); EOSINOPHILS # (AUTO) 0.3 X10'3 (0-0.9); EOSINOPHILS % (AUTO) 2.5 % (0-6); HEMATOCRIT 37.8 % (35.0-45.0); HEMOGLOBIN 12.1 g/dl (12.0-16.0); LYMPHOCYTES # (AUTO) 3.1 X10'3 (1.1-4.8); LYMPHOCYTES % (AUTO) 26.8 % (21-51); MEAN CORPUSCULAR HEMOGLOBIN 27.5 PG (27.0-31.0); MEAN CORPUSCULAR HGB CONC 32.1 g/dL (33.0-36.5); MEAN CORPUSCULAR VOLUME 85.8 FL (78-98); MEAN PLATELET VOLUME 7.3 FL (7.4-10.4); MONOCYTES # (AUTO) 1.3 X10'3 (0-0.9); MONOCYTES % (AUTO) 11.6 % (2-12); NEUTROPHILS # (AUTO) 6.7 X10'3 (1.8-7.7); NEUTROPHILS % (AUTO) 58.5 % (42-75); PLATELET COUNT 322 X10'3 (140-440); RED CELL DISTRIBUTION WIDTH 14.7 % (11.5-14.5); WHITE BLOOD COUNT 11.5 X10'3 (4.5-11.0)
[2022-03-07 07:44] LABS: ALANINE AMINOTRANSFERASE 32 U/L (12-78); ALBUMIN 2.6 G/DL (3.4-5.0); ALBUMIN/GLOBULIN RATIO 0.5 (1.1-1.5); ALKALINE PHOSPHATASE 129 IU/L (46-116); ANION GAP 11 (8-16); ASPARTATE AMINO TRANSFERASE 26 U/L (10-37); BILIRUBIN,TOTAL 0.2 MG/DL (0.1-1.0); BLOOD UREA NITROGEN 6 MG/DL (7-18); BUN/CREATININE RATIO 6.5 (6.6-38.0); CALCIUM 8.7 MG/DL (8.5-10.1); CHLORIDE 105 MMOL/L (99-107); CREATININE 0.92 MG/DL (0.40-0.90); GLUCOSE 130 MG/DL (70-104); POTASSIUM 3.3 MMOL/L (3.5-5.1); SODIUM 140 MMOL/L (135-145); TOTAL CARBON DIOXIDE 23.8 MMOL/L (24-32); TOTAL PROTEIN 7.6 G/DL (6.4-8.2); eGFR 63 ML/MIN
[2022-03-07] MEDS ORDERED: LORazepam 1 MG tablet PO PRN (08:15)
[2022-03-07 10:00] VITALS: BP 159/72
[2022-03-07] MEDS: pantoprazole 40mg Tablet.DR PO SCH (10:09)
[2022-03-07] MEDS: docusate sod 100mg capsule PO SCH (10:10)
[2022-03-07] MEDS: gabapentin 100mg capsule PO SCH (10:10)
--- NOTE | 2022-03-07 13:20 | NUR ---
Patient in room ORTHO 4012. I have received report from Evelyn and had the opportunity to ask questions and assume patient care.
--- NOTE | 2022-03-07 13:30 | NUR ---
Problems reprioritized. Patient report given, questions answered & plan of care reviewed with DAMNO Magana.
--- NOTE | 2022-03-07 14:50 | NUR ---
Patient was adamant about leaving AMA. MD arrived as this conversation was taking place. MD spoke to patient, looked at pt's left knee and advised against discharge. Pt called daughter to demand a ride home. Spoke to daughter on the phone who asked if pt was discharging AMA. IV was removed. Pt stated she had kids to take care of and "things to do". Pt gathered belongings and was taken downstairs to the lobby to wait for her daughter.
--- NOTE | 2022-03-09 10:28 | NUR ---
Pt's family called to say that supposedly an antibiotic was called to [facility] [address] but when they called it was not there. Rx for Doxycyline was called in again. Pt family notified.
== END 2022-03-07 14:50 | disposition left against medical advice (07) | DRG 721 ==
LOC: ER 03:14 → ED HOLD 06:08 → UNDOADMIN 06:08 → ED HOLD 06:12 → ORTHO 4S 03-04 19:00
PROVIDERS: ADMIT Family Medicine; ATTEND Family Medicine
DX: T81.41XA Infection following a procedure, superficial incisional surgical site, initial encounter (principal); A41.9 Sepsis, unspecified organism; E87.1 Hypo-osmolality and hyponatremia; T81.30XA Disruption of wound, unspecified, initial encounter; B18.2 Chronic viral hepatitis C; E66.01 Morbid (severe) obesity due to excess calories; E87.6 Hypokalemia; Z53.29 Procedure and treatment not carried out because of patient's decision for other reasons; F15.90 Other stimulant use, unspecified, uncomplicated; K57.90 Diverticulosis of intestine, part unspecified, without perforation or abscess without bleeding; F17.210 Nicotine dependence, cigarettes, uncomplicated; Y83.8 Other surgical procedures as the cause of abnormal reaction of the patient, or of later complication, without mention of misadventure at the time of the procedure; G89.29 Other chronic pain; I10 Essential (primary) hypertension; J45.909 Unspecified asthma, uncomplicated; K21.9 Gastro-esophageal reflux disease without esophagitis; L03.116 Cellulitis of left lower limb; Z68.41 Body mass index [BMI] 40.0-44.9, adult; Z90.710 Acquired absence of both cervix and uterus; Z90.49 Acquired absence of other specified parts of digestive tract; Z79.899 Other long term (current) drug therapy; Y92.89 Other specified places as the place of occurrence of the external cause
CPT/HCPCS: 36410; 36415; 71045; 73700; 76937; 80048; 80053; 80202; 80305; 83605; 83735; 83880; 84100; 84132; 85025; 87040; 87070; 87077; 87081; 87186; 92508; 92616; 97116; 97161; 97530; 99285; C1751; G0378; J0360; J0696; J1170; J2060; J2270; J2543; J3370; J3480; J7030

== ENCOUNTER 2023-10-04 15:59 | Inpatient (IN) | payer MEDICAID ==
[~2023-10-04] VITALS: Ht 149.9 cm; Wt 77.3 kg
[~2023-10-04 15:59] MED LIST changes: +GABA-530 PO; +IBUP-1984 PO
[2023-10-04] MEDS ORDERED: piperacillin/tazo 3.375gm/50ml 50 ML IV ONE (17:45)
[2023-10-04] MEDS ORDERED: normal saline 1000ML IV soln IV ONE (17:45)
[2023-10-04] MEDS ORDERED: vancomycin 1,750 MG in NS 350ml IV soln IV ONE (18:00)
[2023-10-04] MEDS ORDERED: ondansetron 4mg rapidly disintigrating tab PO ONE (18:50)
[2023-10-04] MEDS ORDERED: bisacodyl 10mg suppository rectal RC PRN (20:10)
[2023-10-04] MEDS ORDERED: diphenhydrAMINE 50 mg/ml inj IV PRN (20:10)
[2023-10-04] MEDS ORDERED: magnesium hydroxide 30ml (MOM) UD suspension PO PRN (20:10)
[2023-10-04] MEDS ORDERED: morphine 2 MG/ML inj. syringe IV PRN ×2 (20:10)
[2023-10-04] MEDS ORDERED: acetaminophen 325mg tablet PO PRN ×2 (20:10)
[2023-10-04] MEDS ORDERED: mag hydrox/Alum hydrox/simeth 30ml oral suspension PO PRN (20:10)
[2023-10-04] MEDS ORDERED: diphenhydrAMINE 25mg capsule PO PRN (20:10)
[2023-10-04] MEDS ORDERED: ondansetron 4mg rapidly disintigrating tab PO PRN (20:10)
[2023-10-04] MEDS ORDERED: ondansetron/PF 4mg/2ml inj IV PRN (20:10)
[2023-10-04] MEDS ORDERED: HYDROcodone/acetaminophen 5mg/325mg tablet PO PRN (20:10)
[2023-10-04] MEDS ORDERED: acetaminophen 650mg rectal suppository RC PRN (20:10)
[2023-10-04] MEDS ORDERED: labetalol 20mg/4ml (5mg/ml) syringe IV PRN (20:15)
[2023-10-04] MEDS ORDERED: fentaNYL/PF 50MCG/1 ML 2ML syringe IM ONE (20:20)
[2023-10-04 20:51] LABS: BASOPHILS # (AUTO) 0.1 X10'3 (0-0.2); EOSINOPHILS % (AUTO) 0 % (0-6); MONOCYTES # (AUTO) 1.1 X10'3 (0-0.9); RED BLOOD COUNT 4.92 X10'6 (4.20-5.60)
[2023-10-04 20:52] LABS: BASOPHILS % (AUTO) 0.3 % (0-1); HEMATOCRIT 41.8 % (35.0-45.0); HEMOGLOBIN 13.8 g/dl (12.0-16.0); LYMPHOCYTES # (AUTO) 1.1 X10'3 (1.1-4.8); LYMPHOCYTES % (AUTO) 4.4 % (21-51); MEAN CORPUSCULAR HEMOGLOBIN 28.2 PG (27.0-31.0); MEAN CORPUSCULAR HGB CONC 33.2 g/dL (33.0-36.5); MEAN PLATELET VOLUME 7.4 FL (7.4-10.4); MONOCYTES % (AUTO) 4.6 % (2-12); NEUTROPHILS # (AUTO) 22.1 X10'3 (1.8-7.7); NEUTROPHILS % (AUTO) 90.7 % (42-75); PLATELET COUNT 222 X10'3 (140-440); RED CELL DISTRIBUTION WIDTH 13.6 % (11.5-14.5); WHITE BLOOD COUNT 24.4 X10'3 (4.5-11.0)
[2023-10-04 21:04] LABS: APTT 35 SECONDS (22-32); INR 1.4 INR; PROTHROMBIN TIME 15.2 SECONDS (9.0-12.0)
[2023-10-04 21:16] LABS: ALANINE AMINOTRANSFERASE 23 U/L (12-78); ALBUMIN 2.4 G/DL (3.4-5.0); ALBUMIN/GLOBULIN RATIO 0.4 (1.1-1.5); ALKALINE PHOSPHATASE 99 IU/L (46-116); ANION GAP 8 (8-16); ASPARTATE AMINO TRANSFERASE 20 U/L (10-37); BILIRUBIN,TOTAL 0.9 MG/DL (0.1-1.0); BLOOD UREA NITROGEN 15 MG/DL (7-18); BUN/CREATININE RATIO 16.7 (10.0-20.0); CALCIUM 8.9 MG/DL (8.5-10.1); CHLORIDE 91 MMOL/L (99-107); GLUCOSE 129 MG/DL (70-104); SODIUM 126 MMOL/L (135-145); TOTAL CARBON DIOXIDE 26.8 MMOL/L (24-32); TOTAL PROTEIN 8.1 G/DL (6.4-8.2); eCRCL 46 ML/MIN; eGFR 64 ML/MIN
[2023-10-04 21:22] LABS: MAGNESIUM 1.6 MG/DL (1.5-2.4); PHOSPHORUS 2.3 MG/DL (2.3-4.5); PRO BRAIN NATRIURETIC PEPTIDE 3738 PG/ML (0-125)
[2023-10-04 21:30] LABS: POTASSIUM 3.6 MMOL/L (3.5-5.1)
[2023-10-04 21:45] VITALS: BP 158/71; PULSE 103; RESP 20; TEMP 98.6; O2SAT 100
[2023-10-04 21:58] LABS: C-REACTIVE PROTEIN 30.58 MG/DL (0.0-0.5)
[2023-10-04 22:00] VITALS: BP_SYST 158; BP_SYST 92; BP_DIAS 53; BP_DIAS 71; PULSE 103; PULSE 83; RESP 20; RESP 22; TEMP 98.6; TEMP 99.1; O2SAT 100; O2SAT 97
[2023-10-04 23:03] LABS: BILIRUBIN,URINE NEGATIVE (Neg); CLARITY,URINE SLIGHTLY CLOUDY (Clear); COLOR,URINE YELLOW (Yellow); GLUCOSE, URINE NEGATIVE (Neg); KETONES,URINE TRACE mg/dl (Neg); LEUKOCYTE ESTERASE ,URINE SMALL (Neg); NITRITES, URINE NEGATIVE (Neg); OCCULT BLOOD,URINE TRACE-INTACT (Neg); PROTEIN,URINE 30 mg/dl (Neg)
[2023-10-04 23:16] LABS: UA COLLECTION TYPE CLN CATCH MIDSTREAM
[2023-10-04 23:18] LABS: BACTERIA,URINE 1+ /HPF (Neg); RBC,URINE 0-2 /HPF (0-2); SQUAMOUS EPITHELIAL CELL,UR MODERATE /LPF (FEW); WBC,URINE 0-4 /HPF (0-4)
[2023-10-04 23:27] LABS: URINE AMPHETAMINE SCREEN POSITIVE (Neg); URINE BARBITUATE SCREEN NEGATIVE (Neg); URINE BENZODIAZEPINES SCREEN NEGATIVE (Neg); URINE CANNABINOID SCREEN POSITIVE (Neg); URINE COCAINE SCREEN NEGATIVE (Neg); URINE METHADONE SCREEN NEGATIVE (Neg); URINE OPIATE SCREEN NEGATIVE (Neg); URINE PHENCYCLIDINE SCREEN NEGATIVE (Neg)
[2023-10-04 23:49] LABS: PLATELET ESTIMATE NORMAL; TOTAL CELLS COUNTED 100; TOXIC VACUOLATION 1+
[2023-10-05] MEDS: sodium chloride 0.45% 1,000 ML IV SCH ×4 (00:05→23:18)
[2023-10-05] MEDS: heparin, porcine 5000 units/ml vial SQ SCH ×4 (00:06→23:24)
[2023-10-05 04:35] LABS: BASOPHILS # (AUTO) 0.1 X10'3 (0-0.2); BASOPHILS % (AUTO) 0.6 % (0-1); EOSINOPHILS % (AUTO) 0.2 % (0-6); HEMATOCRIT 39.7 % (35.0-45.0); HEMOGLOBIN 13.1 g/dl (12.0-16.0); LYMPHOCYTES # (AUTO) 0.9 X10'3 (1.1-4.8); LYMPHOCYTES % (AUTO) 4.9 % (21-51); MEAN CORPUSCULAR HEMOGLOBIN 28.1 PG (27.0-31.0); MEAN CORPUSCULAR VOLUME 85.3 FL (78-98); MEAN PLATELET VOLUME 7.1 FL (7.4-10.4); MONOCYTES # (AUTO) 0.9 X10'3 (0-0.9); MONOCYTES % (AUTO) 4.6 % (2-12); NEUTROPHILS % (AUTO) 89.7 % (42-75); PLATELET COUNT 192 X10'3 (140-440); RED BLOOD COUNT 4.65 X10'6 (4.20-5.60); RED CELL DISTRIBUTION WIDTH 13.4 % (11.5-14.5); WHITE BLOOD COUNT 18.9 X10'3 (4.5-11.0)
[2023-10-05 04:49] LABS: ALANINE AMINOTRANSFERASE 22 U/L (12-78); ALBUMIN 2.1 G/DL (3.4-5.0); ALBUMIN/GLOBULIN RATIO 0.4 (1.1-1.5); ALKALINE PHOSPHATASE 84 IU/L (46-116); ANION GAP 7 (8-16); ASPARTATE AMINO TRANSFERASE 17 U/L (10-37); BILIRUBIN,TOTAL 0.7 MG/DL (0.1-1.0); BLOOD UREA NITROGEN 13 MG/DL (7-18); BUN/CREATININE RATIO 17.1 (10.0-20.0); CALCIUM 8.3 MG/DL (8.5-10.1); CHLORIDE 96 MMOL/L (99-107); CREATININE 0.76 MG/DL (0.40-0.90); GLUCOSE 152 MG/DL (70-104); POTASSIUM 3.1 MMOL/L (3.5-5.1); SODIUM 129 MMOL/L (135-145); TOTAL CARBON DIOXIDE 26.1 MMOL/L (24-32); TOTAL PROTEIN 6.9 G/DL (6.4-8.2); eCRCL 54 ML/MIN; eGFR 78 ML/MIN
[2023-10-05 04:54] LABS: BANDS% (MANUAL) 3 % (0-10); NEUTROPHILS % (MANUAL) 90 % (42-75); TOTAL CELLS COUNTED 100
[2023-10-05 04:55] LABS: EOSINOPHILS % (MANUAL) 1 % (0-6); LYMPHOCYTES % (MANUAL) 3 % (21-51); MONOCYTES % (MANUAL) 3 % (2-12); PLATELET ESTIMATE NORMAL
[2023-10-05 06:00] VITALS: BP 145/78; PULSE 114; RESP 18; TEMP 99.8; O2SAT 94
[2023-10-05] MEDS: HYDROcodone/acetaminophen 10/325mg tab PO PRN ×3 (06:25→19:16)
[2023-10-05] MEDS ORDERED: vancomycin/NS 1 GM ADD-VANTAGE 250 ML IV SCH (08:00)
[2023-10-05 08:40] VITALS: RESP 18; O2SAT 94
[2023-10-05] MEDS ORDERED: HYDROmorphone 1 mg/ml syringe IV PRN (09:05)
[2023-10-05] MEDS: pantoprazole 40mg Tablet.DR PO SCH (09:35)
[2023-10-05] MEDS: docusate sod 100mg capsule PO SCH ×2 (09:44→19:48)
[2023-10-05] MEDS: piperacillin/tazo 4.5gm/100ml 100 ML IV SCH ×2 (09:44→19:38)
[2023-10-05 10:00] VITALS: BP 142/84; PULSE 99; RESP 14; TEMP 98.5; O2SAT 94
[2023-10-05] MEDS: vancomycin/NS 1 GM ADD-VANTAGE 250 ML IV SCH ×2 (10:27→21:32)
[2023-10-05] MEDS ORDERED: potassium Cl 40MEQ/1/2NS 520ml 520 ML IV PRN (15:10)
[2023-10-05] MEDS ORDERED: magnesium 2GM in 50ml NS 50 ML IV PRN (15:10)
[2023-10-05] MEDS ORDERED: magnesium 4gm in 100ml NS 100 ML IV PRN (15:10)
[2023-10-05] MEDS: potassium Cl 20 mEq SR tablet PO PRN ×2 (16:12→21:31)
[2023-10-05 18:00] VITALS: BP 161/81; PULSE 96; RESP 20; TEMP 98.2; O2SAT 100
[2023-10-05] MEDS: K and/or MAG REPLACEMENT MC SCH (20:00)
[2023-10-05] MEDS: temazepam 15mg capsule PO PRN (21:32)
[2023-10-05 22:00] VITALS: BP 170/80; PULSE 94; RESP 14; TEMP 98.2; O2SAT 96
[2023-10-05 22:46] VITALS: BP 151/76; PULSE 90
[2023-10-06] VITALS (7 sets, daily range): BP systolic 154–198; BP diastolic 70–96; PULSE 88–106; RESP 14–20; TEMP 98.1–98.9; O2SAT 95–99
[2023-10-06] MEDS: HYDROcodone/acetaminophen 10/325mg tab PO PRN ×3 (01:27→16:25)
[2023-10-06] MEDS: temazepam 15mg capsule PO PRN ×3 (01:29→23:43)
[2023-10-06] MEDS ORDERED: nitroGLYCERIN 0.4mg SUBLingual tab SL PRN (06:20)
[2023-10-06 06:25] LABS: BASOPHILS % (AUTO) 0.3 % (0-1); EOSINOPHILS % (AUTO) 0.3 % (0-6); HEMATOCRIT 38.1 % (35.0-45.0); HEMOGLOBIN 12.8 g/dl (12.0-16.0); LYMPHOCYTES # (AUTO) 1.5 X10'3 (1.1-4.8); LYMPHOCYTES % (AUTO) 10.7 % (21-51); MEAN CORPUSCULAR HEMOGLOBIN 28.5 PG (27.0-31.0); MEAN CORPUSCULAR HGB CONC 33.7 g/dL (33.0-36.5); MEAN CORPUSCULAR VOLUME 84.5 FL (78-98); MEAN PLATELET VOLUME 7.7 FL (7.4-10.4); MONOCYTES # (AUTO) 1.2 X10'3 (0-0.9); MONOCYTES % (AUTO) 8.5 % (2-12); NEUTROPHILS # (AUTO) 11.4 X10'3 (1.8-7.7); NEUTROPHILS % (AUTO) 80.2 % (42-75); PLATELET COUNT 218 X10'3 (140-440); RED BLOOD COUNT 4.51 X10'6 (4.20-5.60); RED CELL DISTRIBUTION WIDTH 13.4 % (11.5-14.5); WHITE BLOOD COUNT 14.2 X10'3 (4.5-11.0)
[2023-10-06 06:30] LABS: ALANINE AMINOTRANSFERASE 16 U/L (12-78); ALBUMIN 2.1 G/DL (3.4-5.0); ALBUMIN/GLOBULIN RATIO 0.4 (1.1-1.5); ALKALINE PHOSPHATASE 113 IU/L (46-116); ANION GAP 5 (8-16); ASPARTATE AMINO TRANSFERASE 24 U/L (10-37); BILIRUBIN,TOTAL 0.3 MG/DL (0.1-1.0); BLOOD UREA NITROGEN 9 MG/DL (7-18); BUN/CREATININE RATIO 11.5 (10.0-20.0); CALCIUM 8.6 MG/DL (8.5-10.1); CHLORIDE 102 MMOL/L (99-107); CREATININE 0.78 MG/DL (0.40-0.90); GLUCOSE 95 MG/DL (70-104); MAGNESIUM 1.8 MG/DL (1.5-2.4); SODIUM 133 MMOL/L (135-145); TOTAL CARBON DIOXIDE 26.2 MMOL/L (24-32); TOTAL PROTEIN 7.2 G/DL (6.4-8.2); eCRCL 53 ML/MIN; eGFR 76 ML/MIN
[2023-10-06] MEDS: pantoprazole 40mg Tablet.DR PO SCH (07:29)
[2023-10-06] MEDS: potassium Cl 20 mEq SR tablet PO PRN ×3 (07:29→23:44)
[2023-10-06] MEDS: heparin, porcine 5000 units/ml vial SQ SCH ×3 (07:30→23:45)
[2023-10-06] MEDS: docusate sod 100mg capsule PO SCH ×2 (07:30→20:00)
[2023-10-06] MEDS: piperacillin/tazo 4.5gm/100ml 100 ML IV SCH ×2 (07:34→19:30)
[2023-10-06] MEDS: K and/or MAG REPLACEMENT MC SCH ×2 (08:00→20:00)
[2023-10-06] MEDS: sodium chloride 0.45% 1,000 ML IV SCH ×2 (09:16→19:31)
[2023-10-06] MEDS: amLODIPine 5mg tablet PO SCH (09:16)
[2023-10-06] MEDS ORDERED: VANCOMYCIN LEVEL IV ONE ×2 (09:30→21:30)
[2023-10-06] MEDS: vancomycin/NS 1 GM ADD-VANTAGE 250 ML IV SCH ×2 (10:40→23:53)
[2023-10-06] MEDS: hydrALAZINE 20mg/ml inj. IV PRN (16:26)
[2023-10-07] VITALS (7 sets, daily range): BP systolic 152–197; BP diastolic 67–105; PULSE 97–113; RESP 16–20; TEMP 97.8–98.4; O2SAT 95–97
[2023-10-07] MEDS: hydrALAZINE 20mg/ml inj. IV PRN (05:22)
[2023-10-07 07:02] LABS: ALANINE AMINOTRANSFERASE 23 U/L (12-78); ALBUMIN 2.3 G/DL (3.4-5.0); ALBUMIN/GLOBULIN RATIO 0.4 (1.1-1.5); ALKALINE PHOSPHATASE 94 IU/L (46-116); ANION GAP 7 (8-16); ASPARTATE AMINO TRANSFERASE 18 U/L (10-37); BILIRUBIN,TOTAL 0.4 MG/DL (0.1-1.0); BLOOD UREA NITROGEN 8 MG/DL (7-18); BUN/CREATININE RATIO 11.4 (10.0-20.0); CALCIUM 9.3 MG/DL (8.5-10.1); CHLORIDE 100 MMOL/L (99-107); GLUCOSE 100 MG/DL (70-104); MAGNESIUM 1.9 MG/DL (1.5-2.4); POTASSIUM 3.7 MMOL/L (3.5-5.1); SODIUM 133 MMOL/L (135-145); TOTAL CARBON DIOXIDE 25.7 MMOL/L (24-32); TOTAL PROTEIN 8.4 G/DL (6.4-8.2); eCRCL 59 ML/MIN; eGFR 86 ML/MIN
[2023-10-07 07:05] LABS: BASOPHILS % (AUTO) 0.3 % (0-1); EOSINOPHILS # (AUTO) 0.1 X10'3 (0-0.9); EOSINOPHILS % (AUTO) 0.7 % (0-6); HEMATOCRIT 43.1 % (35.0-45.0); HEMOGLOBIN 14.3 g/dl (12.0-16.0); LYMPHOCYTES # (AUTO) 2.4 X10'3 (1.1-4.8); LYMPHOCYTES % (AUTO) 19.3 % (21-51); MEAN CORPUSCULAR HGB CONC 33.1 g/dL (33.0-36.5); MEAN CORPUSCULAR VOLUME 84.6 FL (78-98); MEAN PLATELET VOLUME 7.8 FL (7.4-10.4); MONOCYTES # (AUTO) 1.4 X10'3 (0-0.9); MONOCYTES % (AUTO) 11.5 % (2-12); NEUTROPHILS # (AUTO) 8.4 X10'3 (1.8-7.7); NEUTROPHILS % (AUTO) 68.2 % (42-75); PLATELET COUNT 283 X10'3 (140-440); RED CELL DISTRIBUTION WIDTH 13.8 % (11.5-14.5); WHITE BLOOD COUNT 12.4 X10'3 (4.5-11.0)
[2023-10-07] MEDS: docusate sod 100mg capsule PO SCH ×2 (07:53→20:00)
[2023-10-07] MEDS: amLODIPine 5mg tablet PO SCH (07:55)
[2023-10-07] MEDS: piperacillin/tazo 4.5gm/100ml 100 ML IV SCH ×2 (07:55→19:58)
[2023-10-07] MEDS: heparin, porcine 5000 units/ml vial SQ SCH ×2 (07:56→18:49)
[2023-10-07] MEDS: K and/or MAG REPLACEMENT MC SCH ×2 (08:00→20:00)
[2023-10-07] MEDS: pantoprazole 40mg Tablet.DR PO SCH (08:08)
[2023-10-07] MEDS: sodium chloride 0.45% 1,000 ML IV SCH ×3 (10:10→21:07)
[2023-10-07] MEDS ORDERED: LINE600T11 PO ×2 (10:17)
[2023-10-07] MEDS ORDERED: VANCOMYCIN LEVEL IV ONE (11:30)
[2023-10-07] MEDS: vancomycin/NS 1 GM ADD-VANTAGE 250 ML IV SCH (14:03)
[2023-10-07] MEDS: HYDROmorphone inj. 0.5 MG/0.5 ML DISP.SYRIN IV PRN ×2 (14:49→23:02)
[2023-10-07] MEDS: HYDROcodone/acetaminophen 10/325mg tab PO PRN (19:55)
[2023-10-07] MEDS: temazepam 15mg capsule PO PRN (22:57)
[2023-10-08] MEDS ORDERED: VANCOmycin 1250MG/NS 250ml Bag 250 ML IV SCH
[2023-10-08] MEDS: heparin, porcine 5000 units/ml vial SQ SCH ×2 (00:48→08:14)
[2023-10-08 01:10] VITALS: BP 140/76; PULSE 87
[2023-10-08] MEDS: hydrALAZINE 20mg/ml inj. IV PRN (05:36)
[2023-10-08] MEDS: HYDROcodone/acetaminophen 10/325mg tab PO PRN ×2 (05:39→13:41)
[2023-10-08] MEDS: sodium chloride 0.45% 1,000 ML IV SCH (05:42)
[2023-10-08 06:00] VITALS: BP 181/85; PULSE 102; RESP 16; TEMP 98.3; O2SAT 99
[2023-10-08 06:55] LABS: BASOPHILS # (AUTO) 0.1 X10'3 (0-0.2); BASOPHILS % (AUTO) 0.4 % (0-1); EOSINOPHILS # (AUTO) 0.2 X10'3 (0-0.9); EOSINOPHILS % (AUTO) 1.7 % (0-6); HEMATOCRIT 44.3 % (35.0-45.0); LYMPHOCYTES # (AUTO) 2.8 X10'3 (1.1-4.8); LYMPHOCYTES % (AUTO) 23.1 % (21-51); MEAN CORPUSCULAR HEMOGLOBIN 28.6 PG (27.0-31.0); MEAN CORPUSCULAR HGB CONC 33.9 g/dL (33.0-36.5); MEAN CORPUSCULAR VOLUME 84.2 FL (78-98); MEAN PLATELET VOLUME 7.3 FL (7.4-10.4); MONOCYTES # (AUTO) 1.3 X10'3 (0-0.9); MONOCYTES % (AUTO) 10.9 % (2-12); NEUTROPHILS # (AUTO) 7.8 X10'3 (1.8-7.7); NEUTROPHILS % (AUTO) 63.9 % (42-75); PLATELET COUNT 322 X10'3 (140-440); RED BLOOD COUNT 5.26 X10'6 (4.20-5.60); WHITE BLOOD COUNT 12.2 X10'3 (4.5-11.0)
[2023-10-08 07:00] LABS: ALANINE AMINOTRANSFERASE 18 U/L (12-78); ALBUMIN 2.4 G/DL (3.4-5.0); ALBUMIN/GLOBULIN RATIO 0.4 (1.1-1.5); ALKALINE PHOSPHATASE 96 IU/L (46-116); ANION GAP 10 (8-16); ASPARTATE AMINO TRANSFERASE 20 U/L (10-37); BILIRUBIN,TOTAL 0.4 MG/DL (0.1-1.0); BLOOD UREA NITROGEN 15 MG/DL (7-18); BUN/CREATININE RATIO 13.2 (10.0-20.0); C-REACTIVE PROTEIN 4.99 MG/DL (0.0-0.5); CALCIUM 9.1 MG/DL (8.5-10.1); CHLORIDE 100 MMOL/L (99-107); CREATININE 1.14 MG/DL (0.40-0.90); GLUCOSE 110 MG/DL (70-104); MAGNESIUM 1.8 MG/DL (1.5-2.4); POTASSIUM 3.3 MMOL/L (3.5-5.1); SODIUM 135 MMOL/L (135-145); TOTAL CARBON DIOXIDE 24.9 MMOL/L (24-32); TOTAL PROTEIN 8.7 G/DL (6.4-8.2); eCRCL 36 ML/MIN; eGFR 49 ML/MIN
[2023-10-08 08:00] VITALS: RESP 16; O2SAT 99
[2023-10-08] MEDS: K and/or MAG REPLACEMENT MC SCH (08:00)
[2023-10-08] MEDS: docusate sod 100mg capsule PO SCH (08:00)
[2023-10-08] MEDS: HYDROmorphone inj. 0.5 MG/0.5 ML DISP.SYRIN IV PRN (08:14)
[2023-10-08] MEDS: pantoprazole 40mg Tablet.DR PO SCH (08:14)
[2023-10-08] MEDS: piperacillin/tazo 4.5gm/100ml 100 ML IV SCH (08:14)
[2023-10-08] MEDS: amLODIPine 5mg tablet PO SCH (08:16)
[2023-10-08] MEDS ORDERED: normal saline 1000ml 1,000 ML IV SCH (08:50)
[2023-10-08 10:00] VITALS: BP 154/83; PULSE 115; RESP 23; TEMP 98.7; O2SAT 96
[2023-10-08] MEDS ORDERED: DOXY-243 PO (10:29)
[2023-10-08] MEDS ORDERED: MELA5TAB12 PO (10:32)
[2023-10-08 13:41] VITALS: RESP 16
[2023-10-08] MEDS ORDERED: doxycycline inj 100 MG in normal saline 100ml IV soln 100 ML IV SCH (20:00)
[2023-10-09] MEDS ORDERED: VANCOMYCIN LEVEL IV ONE (11:30)
== END 2023-10-08 14:27 | disposition home or self-care (01) | DRG 383 ==
LOC: ER 16:00 → ED HOLD 20:12 → ORTHO 4S 21:31
PROVIDERS: ADMIT Family Medicine; ATTEND Family Medicine
PROC: 06HY33Z Insertion of Infusion Device into Lower Vein, Percutaneous Approach (ICD-10-PCS; principal; 2023-10-04)
DX: L03.115 Cellulitis of right lower limb (principal); E87.1 Hypo-osmolality and hyponatremia; E87.8 Other disorders of electrolyte and fluid balance, not elsewhere classified; S91.311A Laceration without foreign body, right foot, initial encounter; E66.9 Obesity, unspecified; F11.13 Opioid abuse with withdrawal; J44.9 Chronic obstructive pulmonary disease, unspecified; G89.4 Chronic pain syndrome; K21.9 Gastro-esophageal reflux disease without esophagitis; K57.90 Diverticulosis of intestine, part unspecified, without perforation or abscess without bleeding; E88.09 Other disorders of plasma-protein metabolism, not elsewhere classified; I12.9 Hypertensive chronic kidney disease with stage 1 through stage 4 chronic kidney disease, or unspecified chronic kidney disease; N18.2 Chronic kidney disease, stage 2 (mild); I16.0 Hypertensive urgency; E87.6 Hypokalemia; X58.XXXA Exposure to other specified factors, initial encounter; Y93.89 Activity, other specified; Y92.89 Other specified places as the place of occurrence of the external cause; Z90.710 Acquired absence of both cervix and uterus; Y99.8 Other external cause status; Z90.49 Acquired absence of other specified parts of digestive tract; Z68.34 Body mass index [BMI] 34.0-34.9, adult; Z86.19 Personal history of other infectious and parasitic diseases; Z79.891 Long term (current) use of opiate analgesic; Z72.0 Tobacco use; Z59.00 Homelessness unspecified; Z71.6 Tobacco abuse counseling
CPT/HCPCS: 36415; 36556; 71045; 73700; 80053; 80202; 80305; 81001; 83605; 83735; 83880; 84100; 84145; 85007; 85025; 85610; 85651; 85730; 86140; 87040; 87081; 87088; 93005; 93971; 99285; A6258; C1751; G0378; J0360; J1170; J1644; J2270; J2405; J2543; J3010; J3370; J3490; J7030; J7040